=== PATIENT | male | born 1960 | race Caucasian/White ===

== ENCOUNTER 2016-07-30 05:50 | Outpatient (CLI) | payer OTHER ==
[~2016-07-30] VITALS: Ht 185.4 cm; Wt 93.0 kg
[2016-07-30] MEDS ORDERED: OMEP20TA7 PO (15:33)
== END 2016-07-30 15:37 ==
LOC: PREOP 05:50
PROVIDERS: ATTEND Surgery Pediatric Surgery
DX: Z01.818 Encounter for other preprocedural examination (principal); Z12.11 Encounter for screening for malignant neoplasm of colon; K21.9 Gastro-esophageal reflux disease without esophagitis; R13.10 Dysphagia, unspecified

== ENCOUNTER 2016-08-01 08:22 | Day surgery (SDC) | payer OTHER ==
[~2016-08-01] VITALS: Ht 185.4 cm; Wt 93.0 kg
[~2016-08-01 08:22] MED LIST: OMEP20TA7 PO
[2016-08-01 08:30] VITALS: BP 141/96
[2016-08-01] MEDS ORDERED: HURRICAINE EXT TUBE (BENZOCAINE) XX PRN (08:30)
[2016-08-01] MEDS ORDERED: NS IV 500 ML 500 ML ONE ×2 (08:30→11:40)
[2016-08-01] MEDS ORDERED: FLUMAZENIL (ROMAZICON) 0.1 MG/ML 5 ML VIAL INJ PRN (08:30)
[2016-08-01] MEDS ORDERED: LIDOCAINE JELLY 2% (XYLOCAINE) 5 ML TUBE MM PRN (08:30)
[2016-08-01] MEDS ORDERED: NALOXONE 0.4 MG/ML 1 ML (NARCAN) VIAL IVP PRN (08:30)
[2016-08-01] MEDS: NS IV 500 ML 500 ML IV PRN ×2 (08:45→11:45)
--- NOTE | 2016-08-01 10:17 | Conscious Sedation/ASA ---
Conscious Sedation Pre-Proced Time Reviewed: 10:00 ASA Class: 2 Airway Mallampati Classification: ([place] appropriate class) I. II. III, IV Lungs Heart ASA score ASA 1: a normal healthy patient ASA 2: a patient with a mild systemic disease (mid diabetes, controlled hypertension, obesity ASA 3: a patient with a severe systemic disease that limits activity (angina , COPD, prior Myocardial infarction) ASA 4: a patient with an incapacitating disease that is a constant threat to life (CHF, renal failure) ASA 5: a moribund patient not expected to survive 24 hrs. (ruptured aneurysm) ASA 6: a declared brain patient whose organs are being harvested. For emergent operations, add the letter E after the classification Grade 2 Sedation Plan: Analgesia, Amnesia, Plan communicated to team members, Discussed options with patient/fam, Discussed risks with patient/fam Note The patient is an appropriate candidate to undergo the planned procedure, sedation, and anesthesia. The patient immediately re-assessed prior to indication. SARINA URIBE MD Aug 01, 2016 10:17 am
--- NOTE | 2016-08-01 10:18 | Progress Note-Pre Operative ---
Pre-Operative Progress Note H&P Reviewed The H&P was reviewed, patient examined and no changes noted. Date Seen by Provider: Aug 01, 2016 Time Seen by Provider: 10:00 Date H&P Reviewed: Aug 01, 2016 Time H&P Reviewed: 10:00 Pre-Operative Diagnosis: GERD, dysphagia, screening colonoscopy SARINA URIBE MD Aug 01, 2016 10:18 am
[2016-08-01] MEDS ORDERED: morphine INJ 10 MG/ML 1ML (SYR OR VIAL) IV PRN (10:30)
[2016-08-01] MEDS ORDERED: ONDANSETRON 4 MG/2 ML (SDV) Z0FRAN IV PRN (10:30)
[2016-08-01] MEDS ORDERED: HYDROcodone/APAP 5 MG/325 MG (LORTAB) TAB PO PRN (10:30)
[2016-08-01] MEDS ORDERED: ACETAMINOPHEN 325 MG TABLET/CAPLET (TYLENOL) PO PRN (10:30)
[2016-08-01] MEDS ORDERED: MIDAZOLAM 2 MG/2 ML (VERSED) VIAL ONE ×5 (11:06→11:07)
[2016-08-01] MEDS ORDERED: fentaNYL INJECTION 100 MCG/2 ML AMP ONE ×2 (11:06)
[2016-08-01] MEDS ORDERED: LIDOCAINE JELLY 2% (XYLOCAINE) 5 ML TUBE ONE (11:06)
[2016-08-01] MEDS ORDERED: HURRICAINE EXT TUBE (BENZOCAINE) ONE (11:07)
[2016-08-01] MEDS: fentaNYL INJECTION 100 MCG/2 ML AMP IVP PRN ×4 (11:12→11:48)
[2016-08-01] MEDS: MIDAZOLAM 2 MG/2 ML (VERSED) VIAL IVP PRN ×3 (11:13→11:28)
--- NOTE | 2016-08-01 12:10 | Progress Note-Post Operative ---
Post-Operative Progess Note Surgeon (s)/Book Coverer (s) Surgeon SARINA URIBE MD Book Coverer: none Pre-Operative Diagnosis GERD, dysphagia, screening colonoscopy Post-Operative Diagnosis mild pharygitis, reflux esophagitis(class B-C), mild distal esopageal stricture(shatzki ring), small HH(<1cm), moderate gastritis. mild chronic stage 2 ext and int hemorrhoids. Procedure & Operative Findings Date of Procedure 08/01/16 Procedure Performed/Findings EGD with bx and balloon dilatation. Colonoscopy. Anesthesia Type CS Estimated Blood Loss Estimated blood loss (mL): minimal Specimens/Packing Specimens Removed GE jxn, antrum SARINA URIBE MD Aug 01, 2016 12:10 pm
[2016-08-01] MEDS ORDERED: SUCR1TAB36 PO (12:13)
[2016-08-01] MEDS ORDERED: PANT40TA2 PO (12:13)
--- NOTE | 2016-08-01 12:14 | Discharge Inst-Surgical ---
D/C Lap Instructions-KIDO New, Converted, or Re-Newed RX: RX on Chart Follow Up PRN Activity as tolerated High Fiber Diet 25g or more per day Avoid Alcohol, Caffeine, Spicy [place] and Acid foods. Drink 64 fluid oz or more of fluids per day. Symptoms to Report: Fever over 101 degree F, Nausea/Vomiting If any problems/questions: Contact your physician or go to Emergency Room SARINA URIBE MD Aug 01, 2016 12:14 pm
[2016-08-01 12:50] VITALS: BP_SYST 114; BP_SYST 121; BP_DIAS 84; BP_DIAS 88
[2016-08-01 13:21] VITALS: BP 114/88
--- NOTE | 2016-08-02 01:00 | OPERATIVE REPORT ---
DATE OF SERVICE: 08/01/2016 ATTENDING PHYSICIAN: Dr. Rocío Coles. PREOPERATIVE DIAGNOSES: Dysphagia, gastroesophageal reflux disease, screening colonoscopy. POSTOPERATIVE DIAGNOSES: Reflux esophagitis between class B and C with a mild distal esophageal stricture and Schatzki's ring; small hiatal hernia, less than 1 cm in size; moderate gastritis; chronic stage II external and internal hemorrhoids, rectum and colon were normal. PROCEDURES: EGD with biopsy and balloon dilatation. Colonoscopy. SURGEON: Dr. Uribe. ANESTHESIA: Conscious sedation. ESTIMATED BLOOD LOSS: Minimal. FINDINGS: EGD reflux esophagitis between class B and C with a mild distal esophageal stricture and Schatzki's ring. Small hiatal hernia, less than 1 cm in size. Moderate severity gastritis with no ulcers or any neoplasms identified. Colonoscopy, chronic stage II external and internal hemorrhoids, not actively edematous, nor inflamed and no bleeding. Prostate gland was palpable and appeared normal. The remainder of the rectum and colon were normal. DISPOSITION: The patient tolerated the procedure well. INDICATIONS: The patient is a 56-year-old male with longstanding history of gastroesophageal reflux disease, which has worsened over time. He reports that now he has developed some dysphagia for some foods and has had issues with sinusitis as well as a globus sensation during the process of swallowing. He also does feel substernal sensation after food bolus. He also has developed a nocturnal cough as well as noticing fluid in the back of his throat consistent with regurgitation. He does not report any hematemesis. No coffee ground emesis. He does have some risk factors including caffeinated beverages, greasy foods as well as chewing tobacco. He also is in need of a screening colonoscopy. He has not had a colonoscopy up to this point in his life. He reports for the most part his stools are normal in consistency and color. Does not report any red blood per rectum nor any dark tarry stools as well as no family history of colon cancer. DESCRIPTION OF PROCEDURE: The patient was brought to the endoscopy suite, laid in the left lateral decubitus position. After adequate IV pain and sedating medications and conscious sedation anesthesia, the mouthpiece was applied. The endoscope was then placed in the mouth visualizing the pharynx and hypopharyngeal region. Vocal cords, epiglottis and vallecula identified and there was a mild edema in this region consistent with a mild pharyngitis, most likely secondary to reflux. There were no nodules or neoplasms identified. The endoscope was then gently intubated into the esophageal opening and esophagus insufflated. The endoscope was then advanced through the first, second and third portions of the esophagus. At the level of the GE junction, a reflux esophagitis between class B and C identified. There was also a mild distal esophageal stricture and Schatzki's ring identified. Biopsies were taken in this region with forceps with visualization of good hemostasis. The endoscope was then advanced into the stomach. The endoscope retroflexed, visualizing a small hiatal hernia, less than 1 cm in size. There was a moderate severity gastritis which was diffuse throughout the stomach. There were no formal ulcers, polyps, or any neoplasms identified. A biopsy was taken of the stomach antrum with visualization of good hemostasis. The endoscope was then advanced to the pylorus into the first and second portions of the duodenum, which appeared normal. It was then decided to proceed with dilatation of the stricture. A CRE fixed guidewire balloon was placed in the stomach under direct visualization and then retracted to the area of stricture. We then first proceeded with 3 atmospheres of pressure, 18 mm in diameter with no resistance. We then proceeded to 4.5 atmospheres of pressure, 19 mm with very mild resistance. We then proceeded with 6 atmospheres of pressure, 20 mm in diameter with mild resistance and left this in place for approximately 60 seconds. The balloon was then desufflated and removed. There was no bleeding as well as no mucosal tears identified. The endoscope was then slowly withdrawn taking a second look and suctioning residual air with no additional findings. The patient tolerated this portion of the procedure well. We will recommend the necessary lifestyle and diet accommodation including small or more frequent meals, avoidance of eating at night as well as avoidance of tobacco products, spicy, greasy and acidic foods as well as caffeinated beverages. We will also start him on Protonix 40 mg daily as well as Carafate 1 g q.i.d. for the next two weeks and then on a p.r.n. basis. Under the same conscious sedation anesthesia, we then proceeded with the colonoscopy portion of the procedure. A digital rectal examination was performed which showed mild chronic stage II external and internal hemorrhoids, not actively edematous nor inflamed. Normal sphincter tone was felt and there were no palpable masses. Prostate gland was palpable and appeared normal. The endoscope was then gently intubated to the anus and rectum and gently insufflated. The endoscope was then advanced to the valves of [place] in the rectum with no polyps or any neoplasms identified. We then proceeded through the sigmoid colon were no diverticulosis identified. The endoscope was then advanced to the remainder of the descending, transverse and ascending colon to the cecum with no polyps or any neoplasms identified. The endoscope was then slowly withdrawn taking a second look and suctioning of residual air with no additional findings. The patient tolerated the procedure well. We will recommend a high fiber diet with at least 30 g of fiber per day as well as at least 64 fluid ounces of water daily to promote soft stools on a daily basis. He does not need another colonoscopy for another 10 years. Job ID: [id number] DocumentID: [id number] Dictated Date: 08/01/2016 12:10:27 Premises Technician Date: 08/01/2016 23:32:04 Dictated By: SARINA URIBE MD
== END 2016-08-01 13:20 | disposition home or self-care (01) ==
LOC: ENDO 08:22
PROVIDERS: ATTEND Surgery Pediatric Surgery
DX: Z12.11 Encounter for screening for malignant neoplasm of colon (principal); K22.2 Esophageal obstruction; K21.0 Gastro-esophageal reflux disease with esophagitis; K29.70 Gastritis, unspecified, without bleeding; K64.1 Second degree hemorrhoids; F17.220 Nicotine dependence, chewing tobacco, uncomplicated; E78.00 Pure hypercholesterolemia, unspecified

== ENCOUNTER → 2016-12-14 | Outpatient (CLI) | payer OTHER ==
[~2016-12-14] MED LIST changes: +PANT40TA2 PO; +SUCR1TAB36 PO
--- NOTE | 2016-12-14 15:23 | Diagnostic Imaging Report ---
INDICATION: Chronic cough for several months. Comparison with 06/27/2007. FINDINGS: The lungs are well aerated. No infiltrates have developed. There are no masses. The heart is not enlarged. There is no evidence of pulmonary edema. No hilar adenopathy. No pneumothorax or pleural effusion. IMPRESSION: Normal PA and lateral chest. Dictated by: Dictated on workstation # [id number]
== END ==
LOC: RAD 14:32
PROVIDERS: ATTEND Internal Medicine
DX: R05 Cough (principal)
CPT/HCPCS: 71020

== ENCOUNTER → 2018-06-02 | Outpatient (CLI) | payer OTHER ==
--- NOTE | 2018-06-02 17:11 | Diagnostic Imaging Report ---
EXAM: ABDOMEN, FLAT UPRIGHT/DECUB. INDICATION: RLQ PAIN. COMPARISON: None. FINDINGS: Nonspecific bowel gas pattern. No large stool burden. No radiopaque body is suspicious for nephrolithiasis. No acute osseous findings. IMPRESSION: No acute radiographic findings in the abdomen. Dictated by: Dictated on workstation # [id number]
== END ==
LOC: RAD 16:31
PROVIDERS: ATTEND Physician Assistant
DX: R10.31 Right lower quadrant pain (principal)
CPT/HCPCS: 74019

== ENCOUNTER → 2019-12-23 | Outpatient (CLI) | payer OTHER | LOC: LABNPT 08:20 | PROVIDERS: ATTEND Internal Medicine | DX: Z20.828 Contact with and (suspected) exposure to other viral communicable diseases (principal) | CPT/HCPCS: 87635 ==

== ENCOUNTER → 2021-06-14 | Outpatient (CLI) | payer OTHER ==
[2021-06-14 10:28] VITALS: BP 169/97
--- NOTE | 2021-06-14 14:42 | Cardiology Stress Test Report ---
Stress Test Report Date of Procedure/Referring: Date of Procedure: Jun 14, 2021 PCP Karen Ribera MD Admitting Physician Jesse Guthrie MD Indications: Dyspnea Baseline Heart Rate: 70 Baseline Blood Pressure: Blood Pressure Systolic: 169 Blood Pressure Diastolic: 97 Baseline EKG: Baseline EKG: NSR Summary/Conclusion: Summary: In summary, the patient started exercising with a baseline heart rate, blood pressure and EKG mentioned above Patient was able to exercise for a total of 11 minutes on [place] protocol, METs 12.1 Maximum heart rate 138 Maximum blood pressure 205/91 Stress EKG, Minimal nondiagnostic changes Recovery EKG , Return to baseline Conclusion: 1. Good exercise tolerance for a total of 11 minutes on [place] protocol, 12.1 METs, achieving 85 percent of maximum expected heart rate 2. Minimal nondiagnostic EKG changes with exercise returned to baseline during recovery 3. Occasional PVCs noted at peak stress level and during recovery 4. Appropriate heart rate response to exercise with a hypertensive response to exercise with peak blood pressure 205/91 returned to baseline during recovery Copy Copies To 1: JESSE GUTHRIE MD, BASHAR J MD Jun 14, 2021 14:42
== END ==
LOC: CARD 09:30
PROVIDERS: ATTEND Internal Medicine Cardiovascular Disease
DX: I11.9 Hypertensive heart disease without heart failure (principal)
CPT/HCPCS: 93017; 93306